=== PATIENT | female | born 1950 | race Caucasian/White ===

== ENCOUNTER → 2023-06-08 12:18 | Outpatient (BNVA) | payer MEDICARE, SELFPAY | PROVIDERS: Visit Provider Nurse Practitioner Family | DX: R53.83 Other fatigue (principal); R68.89 Other general symptoms and signs; R41.89 Other symptoms and signs involving cognitive functions and awareness; E03.9 Hypothyroidism, unspecified | CPT/HCPCS: 80053; 84439; 84443; 84480; 85025 ==

== ENCOUNTER → 2023-07-26 14:18 | Outpatient (BNVA) | payer MEDICARE, SELFPAY | PROVIDERS: PCP Nurse Practitioner; Visit Provider Nurse Practitioner | DX: R53.83 Other fatigue (principal) | CPT/HCPCS: 85651; 86038; 86140; 86431 ==